=== PATIENT | male | born 1970 | race Caucasian/White ===

== ENCOUNTER 2020-02-08 19:46 | Emergency (ER) | payer MEDICARE, MEDICAID, SELFPAY ==
[2020-02-08 19:47] VITALS: BP 139/91; PULSE 95; RESP 15; TEMP 36.1; O2SAT 98; BMI 34.4
--- NOTE | 2020-02-08 20:36 | ED.VIS.GEN ---
History of Present Illness Chief Complaint: Upper Extremity Injury Narrative: Patient is a 49-year-old male who presents with left middle finger pain. At about 8:00 this morning he went to flick a cigarette to try to send this far as he could. He had immediate pain at his third MCP. He went to urgent care today. Had an x-ray which was reported negative. He still has pain so he presented here for evaluation because he feels like the tendon is moving. Past Medical History - Allergies and Home Meds Allergies/Adverse Reactions: Allergies risperidone [From Risperdal] Allergy (Verified 02/08/20 19:52) Hives naproxen Adverse Reaction (Verified 02/08/20 19:52) Nausea Past Medical History: - - Diabetes and schizoaffective disorder Smoking Status: Current every day smoker Review of Systems All systems negative except as indicated General: Denies: Fever Cardiovascular: Denies: Chest pain Respiratory: Denies: Dyspnea Musculoskeletal: Reports: Extremity Pain Skin: Denies: Rash Neurological: Denies: Headache Physical Exam Vital Signs/Narrative: Vital Signs Temp Pulse Resp BP Pulse Ox 02/08/20 19:47 96.9 F L 95 15 139/91 H 98 General: Well nourished Head: Normocephalic Eyes: EOMI Cardiovascular: Regular rate Respiratory: No distress Extremities: - - Patient has tenderness at the third MCP no obvious deformity in the hand or digits he has normal flexion and extension he has brisk capillary refill normal sensation Skin: Normal color Neurological: Alert Diagnostic/Tx/Re-eval - Medical Decision Making Patient's exam is consistent with a finger sprain. He already had x-rays today. I do not believe repeat imaging is indicated. He was given ibuprofen and a finger splint advised on supportive care. He was discharged home. ED Disposition - Plan for ED Patient: Disposition: Home or Assisted Living Diagnosis: Finger sprain Instructions: ED Sprain Finger Prescriptions: Ibuprofen [Motrin] 600 mg PO Q6H PRN PRN #15 tab PRN Reason: Pain/Inflammation Prescription Printed Referrals: Leroy Hendricks MD [STAFF PHYSICIAN] -
[2020-02-08] MEDS: Ibuprofen 600 MG Tablet PO (21:03)
[2020-02-08 21:04] VITALS: PULSE 86; RESP 16; O2SAT 98
== END 2020-02-08 21:07 | disposition home or self-care (01) ==
LOC: ED 21:06
PROVIDERS: Emergency Provider Emergency Medicine
DX: S63.613A Unspecified sprain of left middle finger, initial encounter (principal); F17.210 Nicotine dependence, cigarettes, uncomplicated; E11.9 Type 2 diabetes mellitus without complications; F25.9 Schizoaffective disorder, unspecified; X58.XXXA Exposure to other specified factors, initial encounter; Z79.4 Long term (current) use of insulin
CPT/HCPCS: 99283

== ENCOUNTER 2020-03-07 06:10 | Emergency (ER) | payer MEDICARE, MEDICAID, SELFPAY ==
[2020-03-07 06:11] VITALS: BP 136/80; PULSE 103; RESP 18; TEMP 36.7; O2SAT 99; BMI 36.4
--- NOTE | 2020-03-07 06:13 | RAD_ITS ---
STUDY: X-RAY CHEST REASON FOR EXAM: Male, 49 years old. PALPITATIONS AFTER USING CRACK -- REFUSED TO REMOVE NIPPLE RINGS TECHNIQUE: Single AP portable view of the chest. COMPARISON: None. FINDINGS: The lungs are clear and expanded. There is no demonstrated pleural abnormality. Normal size heart. Normal mediastinum and eliezer. Normal visualized pulmonary arteries. Normal visualized aortic arch and descending thoracic aorta. Normal visualized thoracic spine. Normal visualized ribs, clavicles, and shoulders. There is no demonstrated abnormality of the visualized soft tissue structures of the upper abdomen. RAD/Chest 1 View (Portable) IMPRESSION: Normal x-ray examination of the chest. Electronically Signed: Perico Cintron MD at 6:42 EST Tel , Service support ,
--- NOTE | 2020-03-07 06:13 | EKG12_ITS ---
Test Reason : PALPATATIONS Blood Pressure : / mmHG Vent. Rate : 102 BPM Atrial Rate : 102 BPM P-R Int : 144 ms QRS Dur : 074 ms QT Int : 366 ms P-R-T Axes : 060 044 064 degrees QTc Int : 477 ms Sinus tachycardia with Premature atrial complexes Otherwise normal ECG Confirmed by ANTONI STOCK, YANIRA ([id number]), editor map NIGEL BELCHER ([id number]) on 03/09/2020 12:52:45 PM Referred By: TOMAS Confirmed By:YANIRA CORRALES MD
--- NOTE | 2020-03-07 06:14 | ED.DCSUM_ITS ---
History of Present Illness Chief Complaint: Palpitations Informant: Patient Narrative: 49-year-old male states that last evening and into the night he smoked about $400 worth of crack cocaine. He then went home and drank a 12 pack of regular Coke. He states he was having some chest pain but now it feels like his heart is skipping beats. He feels anxious. He states that he had been sober for 2 years. Past Medical History - Allergies and Home Meds Allergies/Adverse Reactions: Allergies risperidone [From Risperdal] Allergy (Verified 03/07/20 06:13) Hives naproxen Adverse Reaction (Verified 03/07/20 06:13) Nausea Primary Care Physician: NOT,DEFINED [NON-STAFF] - Past Medical History: - - Asthma polysubstance drug abuse Surgical History: noncontributory Smoking Status: Current every day smoker Drugs: Cocaine Review of Systems General: Denies: Chills, Fever, Sweats Eyes: Denies: Visual changes - bilaterally, Diplopia ENT: Denies: Rhinorrhea, Sore throat Cardiovascular: Reports: Chest pain, Palpitations, Heart racing Respiratory: Denies: Dyspnea, Cough, Dyspnea on exertion Gastrointestinal: Denies: Abdominal pain, Nausea, Vomiting, Diarrhea, Melena, Hematochezia Genitourinary: Denies: Dysuria, Hematuria, Frequency Musculoskeletal: Denies: Back pain, Extremity Pain Skin: Denies: Rash, Wounds Neurological: Denies: Headache, Weakness, Numbness Psych: Reports: Anxiety. Denies: Suicidal thoughts, Suicidal ideations Physical Exam Vital Signs/Narrative: Vital Signs Temp Pulse Resp BP Pulse Ox 03/07/20 06:11 98.0 F 103 H 18 136/80 H 99 Inital Vital Signs reviewed: Yes General: Well nourished, Well developed, No Acute Distress Head: Normocephalic, Atraumatic Eyes: Perrl, EOMI ENT: Moist mucous membranes, No rhinorrhea Neck: Supple, Nontender Cardiovascular: Regular rate, No murmurs, Tachycardia Respiratory: No distress, CTA bilaterally, Chest nontender Abdomen: Soft, Nontender, Nondistended, Normal bowel sounds Back: Nontender, Normal Inspection Extremities: Nontender, No edema Skin: Normal color, No rash Neurological: Alert, Oriented x3, Cranial nerves II-XII grossly intact, Normal Strength, Normal Sensation Psychological: Normal affect, Normal Mood Diagnostic/Tx/Re-eval Clinical Impression(s) from Imaging Studies Chest X-Ray 03/07/20 06:13 IMPRESSION: Normal x-ray examination of the chest. Electronically Signed: Perico Cintron MD at 6:42 EST Tel , Service support , Laboratory Last Values WBC 14.1 K/mm3 (4.4-11.0) H 03/07/20 06:20 RBC 4.94 M/mm3 (4.6-6.2) 03/07/20 06:20 Hgb 15.1 g/dL (13.0-16.5) 03/07/20 06:20 Hct 45.3 % (40-54) 03/07/20 06:20 MCV 91.7 fL (80-94) 03/07/20 06:20 MCH 30.6 pg (27.0-32.0) 03/07/20 06:20 MCHC 33.3 g/dL (32-36) 03/07/20 06:20 RDW Std Deviation 41.3 fl (35.1-43.9) 03/07/20 06:20 RDW Coeff of Thais 12.2 % (11.6-14.6) 03/07/20 06:20 Plt Count 378 K/mm3 (150-450) 03/07/20 06:20 MPV 8.5 fl (6.2-12.0) 03/07/20 06:20 Immature Gran % (Auto) 0.700 % (0.0-0.9) 03/07/20 06:20 Neut % (Auto) 61.7 % (47-70) 03/07/20 06:20 Lymph % (Auto) 26.4 % (19-41) 03/07/20 06:20 [place] % (Auto) 8.2 % (0-10) 03/07/20 06:20 Eos % (Auto) 2.4 % (0-5) 03/07/20 06:20 Baso % (Auto) 0.6 % (0-1) 03/07/20 06:20 Absolute Neuts (auto) 8.7 X10^3/uL (2.0-7.7) H 03/07/20 06:20 Absolute Lymphs (auto) 3.72 X10^3/uL (0.83-4.51) 03/07/20 06:20 Nucleated RBC % 0 % (0-5) 03/07/20 06:20 Sodium 132 mmol/L (136-145) L 03/07/20 06:20 Potassium 3.5 mmol/L (3.5-5.1) 03/07/20 06:20 Chloride 96 mmol/L (98-107) L 03/07/20 06:20 Carbon Dioxide 29.0 mmol/L (21.0-32.0) 03/07/20 06:20 Anion Gap 7 (5-15) 03/07/20 06:20 BUN 2 mg/dL (7-18) L 03/07/20 06:20 Creatinine 0.94 mg/dL (0.70-1.30) 03/07/20 06:20 Estim Creat Clear Calc 90.83 ml/min 03/07/20 06:20 Est GFR (MDRD) Af Amer 110 mL/min (>60) 03/07/20 06:20 Est GFR (MDRD) Non-Af 91 mL/min (>60) 03/07/20 06:20 BUN/Creatinine Ratio 2.1 RATIO (10-20) L 03/07/20 06:20 Glucose 120 mg/dL (74-106) H 03/07/20 06:20 Calcium 8.4 mg/dL (8.5-10.1) L 03/07/20 06:20 Magnesium 1.7 mg/dL (1.6-2.6) 03/07/20 06:20 Troponin I < 0.015 ng/mL (<0.045) 03/07/20 06:20 - EKG Initial EKG Interpretation: Sinus Tachycardia - EKG demonstrates a sinus tachycardia at a rate of 102 with PACs noted. No concerning features of ACS - Medical Decision Making Patient was placed on the monitor. He received a milligram of Ativan. His heart rate is down to 100. Basic labs including troponin negative. Read the chest x-ray showed a normal mediastinal silhouette. This was also read as negative by radiology. There is no evidence of ACS at this time. He is requesting discharge. I think that this is very reasonable. ED Disposition - Plan for ED Patient: Disposition: Home or Assisted Living Diagnosis: Cocaine abuse, Chest pain, Palpitations Instructions: ED Abuse Cocaine and Crack Referrals: Wendy Jules MD [STAFF PHYSICIAN] - As Needed (for primary care)
[2020-03-07 06:31] LABS: Absolute Lymphocyte Count 3.72 X10^3/uL (0.83-4.51); Absolute Neutrophil Count 8.7 X10^3/uL (2.0-7.7); Basophil# 0.09 X10^3/uL; Basophil% 0.6 % (0-1); Eosinophil# 0.34 X10^3/uL; Eosinophils% 2.4 % (0-5); Hematocrit 45.3 % (40-54); Hemoglobin 15.1 g/dL (13.0-16.5); Lymphocyte # 3.72 X10^3/ul (4.0); Lymphocyte % 26.4 % (19-41); Mean Corp Hgb Conc 33.3 g/dL (32-36); Mean Corpuscular Hgb 30.6 pg (27.0-32.0); Mean Corpuscular Volume 91.7 fL (80-94); Mean Platelet Vol. 8.5 fl (6.2-12.0); Monocyte# 1.15 X10^3/uL; Monocyte% 8.2 % (0-10); NRBC Flagged by Analyzer 0 % (0-5); Neutrophil # 8.69 X10^3/uL (2.7-7.7); Neutrophil % 61.7 % (47-70); Platelet Count 378 K/mm3 (150-450); RBC Distribution Width CV 12.2 % (11.6-14.6); RBC Distribution Width SD 41.3 fl (35.1-43.9); Red Blood Count 4.94 M/mm3 (4.6-6.2); White Blood Count 14.1 K/mm3 (4.4-11.0)
[2020-03-07] MEDS: 0.9% Normal Saline 1,000 ML 1000 ML IV (06:32)
[2020-03-07] MEDS: LORazepam 2 MG/ML Syringe 1 MG IV (06:33)
[2020-03-07 06:57] LABS: Anion Gap 7 (5-15); BUN 2 mg/dL (7-18); BUN/Creat Ratio 2.1 RATIO (10-20); Calcium,Total 8.4 mg/dL (8.5-10.1); Chloride 96 mmol/L (98-107); Creatinine, Serum 0.94 mg/dL (0.70-1.30); EST Glomerular Filtration Rate 91 mL/min (>60); Est Glom Filt Rate - Afr Amer 110 mL/min (>60); Estimated Creatinine Clearance 90.83 ml/min; Glucose 120 mg/dL (74-106); Magnesium 1.7 mg/dL (1.6-2.6); Potassium 3.5 mmol/L (3.5-5.1); Sodium Level 132 mmol/L (136-145)
[2020-03-07 07:16] VITALS: BP 162/96; PULSE 98; RESP 21; O2SAT 96
--- NOTE | 2020-03-07 07:20 | ED.RN ---
IV DC'ED, CATHETER INTACT, SMALL GAUZE DRESSING PLACED. DISCHARGE INSTRUCTIONS GIVEN TO AND REVIEWED WITH PATIENT, PATIENT DENIES QUESTIONS OR CONCERNS AND VOICES UNDERSTANDING OF DISCHARGE INSTRUCTIONS. PT AMBULATES OUT OF ROOM WITHOUT DIFFICULTY.
== END 2020-03-07 08:31 | disposition home or self-care (01) ==
PROVIDERS: Emergency Provider Emergency Medicine
DX: F14.10 Cocaine abuse, uncomplicated (principal); R07.9 Chest pain, unspecified; R00.2 Palpitations; F17.200 Nicotine dependence, unspecified, uncomplicated; J45.909 Unspecified asthma, uncomplicated
CPT/HCPCS: 71045; 80048; 83735; 84484; 85025; 93005; 96361; 96374; 99283; J7030; A4216

== ENCOUNTER 2020-03-11 22:11 | Emergency (ER) | payer MEDICARE, MEDICAID, SELFPAY ==
[2020-03-11 22:12] VITALS: BP 173/93; PULSE 100; RESP 24; TEMP 36.9; O2SAT 97; BMI 33.4
[2020-03-11 22:16] VITALS: BP 156/89
[2020-03-11 22:17] VITALS: O2SAT 98
--- NOTE | 2020-03-11 22:26 | ED.DCSUM_ITS ---
History of Present Illness Chief Complaint: Shortness of Breath Detail of Chief Complaint: Nonproductive cough, dyspnea, loss of taste and smell Onset: Yesterday Context: Sudden Onset Timing: Continuous Quality: Dyspnea, nonproductive cough, rhinorrhea Location: Upper respiratory Current Severity: Mild Maximum Severity: Moderate Worsened by: Dyspnea with exertion Relieved by: Nothing Associated Symptoms: Subjective fever Narrative: Patient is a 49-year-old male who admitted to doing cocaine/crack the other day. He reports shortness of breath, dyspnea on exertion, nonproductive cough, rhinorrhea, ear pain, headache and loss of taste and smell. Onset of symptoms approximate 24 hours ago. He denies history of VTE. He denies leg pain, swelling discoloration. He has not noted a rash. He denies photophobia, neck pain or neck stiffness. He denies nausea, vomiting or diarrhea. He states I do not feel well . He has been out without the use of a mask. Prior similar symptoms: No Recent Illness/Hospitalization: No - Past Medical History (1) Illicit drug use Status: Acute (2) Tobacco use Status: Acute Past Medical History - Allergies and Home Meds Allergies/Adverse Reactions: Allergies risperidone [From Risperdal] Allergy (Verified 03/11/20 22:15) Hives naproxen Adverse Reaction (Verified 03/11/20 22:15) Nausea Primary Care Physician: BEATRIZ SNYDER [Other] Prior records reviewed: No Past Medical History: None Surgical History: noncontributory Lives: Spouse/ Significant Other Smoking Status: Current every day smoker Alcohol: None Drugs: - - Crack cocaine Review of Systems General: Reports: Malaise. Denies: Chills, Fever, Subjective, Sweats Eyes: Denies: Visual changes - bilaterally, Blurred Vision - bilaterally ENT: Reports: Bilateral ear pain, Rhinorrhea, Sore throat Cardiovascular: Reports: Palpitations. Denies: Chest pain Respiratory: Reports: Dyspnea, Cough, Dyspnea on exertion. Denies: Sputum, Orthopnea, Paroxysmal nocturnal dyspnea Gastrointestinal: Denies: Abdominal pain, Nausea, Vomiting, Diarrhea, Melena, Hematochezia Genitourinary: Denies: Dysuria, Hematuria, Frequency Musculoskeletal: Denies: Myalgias, Arthralgias, Neck pain, Back pain, Swelling, Extremity Pain Skin: Denies: Rash, Wounds Neurological: Reports: Weakness. Denies: Headache, Parasthesia Endocrine: Denies: Polyuria, Polydipsia Hematologic: Denies: Easy bruising, Easy bleeding Physical Exam Vital Signs/Narrative: Vital Signs Temp Pulse Resp BP Pulse Ox 03/11/20 22:16 156/89 H 03/11/20 22:12 98.5 F 100 24 H 173/93 H 97 Inital Vital Signs reviewed: Yes General: Well nourished, Well developed, Obese, - - Appears ill. Head: Normocephalic, Atraumatic Eyes: Perrl, EOMI. Negative for: Pale conjunctiva, Scleral icterus ENT: Moist mucous membranes, TM's clear. Negative for: No rhinorrhea Neck: Supple, Nontender, No lymphadenopathy, No JVD Cardiovascular: Regular rate, Regular rhythm, No murmurs, Normal S1 Respiratory: No distress, CTA bilaterally, Chest nontender Abdomen: Soft, Nontender, Nondistended, Normal bowel sounds Rectal: Deferred Back: Nontender, Normal Inspection Extremities: Nontender, No edema, - - There is no asymmetry, swelling, discoloration, leg vein distention, palpable cords or tenderness along the distribution of the deep venous system. Skin: Normal color, No rash Neurological: Alert, Oriented x3, Cranial nerves II-XII grossly intact, Normal Strength, Normal Sensation Psychological: Normal affect Diagnostic/Tx/Re-eval Chest X-Ray - ED: 1 View, Read by ED Physician, Normal, Heart, Mediastinum, Bony Structures, No Acute Disease, Chronic Changes Impressions Chest X-Ray 03/11/20 22:50 IMPRESSION: Normal x-ray examination of the chest. Electronically Signed: Inderjit Grayson MD at 23:09 EST , Service support , 03/11/20 22:50 Chest 1 View (Portable) [RAD] Stat Laboratory Results 03/11/20 03/11/20 03/11/20 22:30 22:30 22:30 WBC 14.4 H RBC 4.85 Hgb 15.0 Hct 44.0 MCV 90.7 MCH 30.9 MCHC 34.1 RDW Std Deviation 40.2 RDW Coeff of Thais 12.1 Plt Count 370 MPV 8.6 Immature Gran % (Auto) 0.600 Neut % (Auto) 61.8 Lymph % (Auto) 23.2 [place] % (Auto) 7.9 Eos % (Auto) 5.7 H Baso % (Auto) 0.8 Absolute Neuts (auto) 8.9 H Absolute Lymphs (auto) 3.33 Nucleated RBC % 0 Sodium 128 L Potassium 3.1 L Chloride 94 L Carbon Dioxide 29.0 Anion Gap 5 BUN 3 L Creatinine 0.86 Estim Creat Clear Calc 109.64 Est GFR (MDRD) Af Amer 121 Est GFR (MDRD) Non-Af 100 BUN/Creatinine Ratio 3.5 L Glucose 112 H Lactic Acid 1.9 Calcium 8.1 L Total Bilirubin 0.30 AST 7 L ALT 28 Alkaline Phosphatase 124 H Total Protein 7.1 Albumin 3.7 Globulin 3.4 Albumin/Globulin Ratio 1.1 Patient has elevated white count. Patient was seen on the and had elevated white count of 14.1 thousand. He was hyponatremic on that visit as well. Lactate is normal at 1.9. Chest x-ray unremarkable. Patient has symptoms consistent with Covid. He was discharged with appropriate home-going i nstructions for Covid. - Medical Decision Making She presents with upper respiratory-like symptoms. With loss of taste and smell suspect patient has Covid. Appropriate tests were ordered which included CBC, basic metabolic panel and chest x-ray. Since patient is not hemodynamically stable nor is he hypoxic outpatient Covid test was ordered. ED Disposition - Plan for ED Patient: Disposition: Home or Assisted Living Diagnosis: COVID-19 virus infection, Hyponatremia, Hypokalemia Referrals: BEATRIZ SNYDER [Other] - 10-14 Days if not better Additional Instructions: 1. You need to self quarantine for the next 10 to 14 days. 2. It is in your best interest to quit smoking tonight. 3. All of your symptoms are caused from viral infection and your symptoms are consistent with COVID-19 infection.
--- NOTE | 2020-03-11 22:50 | RAD_ITS ---
STUDY: X-RAY CHEST REASON FOR EXAM: Male, 49 years old. COMPLAINS OF DYSPNEA WITH EXERTION SINCE YESTERDAY. HX OF ASTHMA TECHNIQUE: Single AP portable view of the chest. COMPARISON: 03/07/2020. FINDINGS: The lungs are clear and expanded. There is no demonstrated pleural abnormality. Normal size heart. Normal mediastinum and eliezer. Normal visualized pulmonary arteries. Normal visualized aortic arch and descending thoracic aorta. Normal visualized thoracic spine. Normal visualized ribs, clavicles, and shoulders. There is no demonstrated abnormality of the visualized soft tissue structures of the upper abdomen. RAD/Chest 1 View (Portable) IMPRESSION: Normal x-ray examination of the chest. Electronically Signed: Inderjit Grayson MD at 23:09 EST , Service support ,
[2020-03-11 22:52] LABS: Absolute Lymphocyte Count 3.33 X10^3/uL (0.83-4.51); Absolute Neutrophil Count 8.9 X10^3/uL (2.0-7.7); Basophil# 0.11 X10^3/uL; Basophil% 0.8 % (0-1); Eosinophil# 0.82 X10^3/uL; Eosinophils% 5.7 % (0-5); Lymphocyte # 3.33 X10^3/ul (4.0); Lymphocyte % 23.2 % (19-41); Mean Corp Hgb Conc 34.1 g/dL (32-36); Mean Corpuscular Hgb 30.9 pg (27.0-32.0); Mean Corpuscular Volume 90.7 fL (80-94); Mean Platelet Vol. 8.6 fl (6.2-12.0); Monocyte# 1.13 X10^3/uL; Monocyte% 7.9 % (0-10); NRBC Flagged by Analyzer 0 % (0-5); Neutrophil # 8.88 X10^3/uL (2.7-7.7); Neutrophil % 61.8 % (47-70); Platelet Count 370 K/mm3 (150-450); RBC Distribution Width CV 12.1 % (11.6-14.6); RBC Distribution Width SD 40.2 fl (35.1-43.9); Red Blood Count 4.85 M/mm3 (4.6-6.2); White Blood Count 14.4 K/mm3 (4.4-11.0)
[2020-03-11 23:12] LABS: ALB/GLOB Ratio 1.1 RATIO (0.9-2.4); AST(SGOT) 7 U/L (15-37); Alanine Aminotransfer ALT/SGPT 28 U/L (16-61); Albumin, Serum 3.7 g/dL (3.2-5.0); Alkaline Phosphatase 124 U/L (45-117); Anion Gap 5 (5-15); BUN 3 mg/dL (7-18); BUN/Creat Ratio 3.5 RATIO (10-20); Calcium,Total 8.1 mg/dL (8.5-10.1); Chloride 94 mmol/L (98-107); Creatinine, Serum 0.86 mg/dL (0.70-1.30); EST Glomerular Filtration Rate 100 mL/min (>60); Est Glom Filt Rate - Afr Amer 121 mL/min (>60); Estimated Creatinine Clearance 109.64 ml/min; Globulin 3.4 g/dL (2.2-4.2); Glucose 112 mg/dL (74-106); Potassium 3.1 mmol/L (3.5-5.1); Protein, Total 7.1 g/dL (6.4-8.2); Sodium Level 128 mmol/L (136-145)
[2020-03-11 23:15] LABS: Lactic Acid 1.9 mmol/L (0.4-1.9)
[2020-03-11 23:47] VITALS: O2SAT 96
== END 2020-03-11 23:47 | disposition home or self-care (01) ==
PROVIDERS: Emergency Provider Emergency Medicine
DX: U07.1 COVID-19 (principal); E87.1 Hypo-osmolality and hyponatremia; E87.6 Hypokalemia; F17.200 Nicotine dependence, unspecified, uncomplicated; E66.9 Obesity, unspecified
CPT/HCPCS: 71045; 80053; 83605; 85025; 87635; 99285; A4216; U0003

== ENCOUNTER 2020-03-24 05:06 | Emergency (ER) | payer MEDICARE, MEDICAID, SELFPAY ==
[2020-03-24 05:06] VITALS: BP 157/88; PULSE 105; RESP 23; TEMP 37.1; O2SAT 97; BMI 34.1
--- NOTE | 2020-03-24 05:10 | EKG12_ITS ---
Test Reason : CP Blood Pressure : / mmHG Vent. Rate : 102 BPM Atrial Rate : 102 BPM P-R Int : 136 ms QRS Dur : 070 ms QT Int : 360 ms P-R-T Axes : 056 051 065 degrees QTc Int : 469 ms Sinus tachycardia Otherwise normal ECG Confirmed by CHAITANYA STOCK, JACQUELINE ([id number]), offline editor NIGEL BELCHER ([id number]) on 03/24/2020 1:40:50 PM Referred By: ANNIA Confirmed By:ROULA TAVARES MD
--- NOTE | 2020-03-24 05:10 | RAD_ITS ---
HISTORY: Tquot;i smoked 400$ worth of crack and now my chest feels funny.Tquot; was seen on 03/07/20 for samerefuses to remove nipple piercings EXAM: XR Chest 1 View: COMPARISON: March 11, 2020 FINDINGS: # of images incl. 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 The disease within this location is more accentuated than on the previous study. Additional comparison is made to March 07, 2020. Findings: Today are more similar to that study. Heart is not enlarged. No acute osseous pathology perceived. Pulmonary vascularity is distinct. No effusions. RAD/Chest 1 View (Portable) IMPRESSION: Irregular contour to the left lateral inferior left chest wall due to rib fractures likely is pleural thickening. No significant change accounting for differences in patient position.. at 0557 Reported and signed by: Melquiades Gaming MD Electronically Signed: Melquiades Gaming MD at 5:56 EST Tel , Service support ,
--- NOTE | 2020-03-24 05:20 | ED.DCSUM_ITS ---
History of Present Illness Chief Complaint: Chest Pain Informant: Patient Narrative: Patient is a 49-year-old male who presents to the emergency department for an episode of chest discomfort. This lasted for 30 minutes. Is currently asymptomatic. He states he has had this before whenever he smokes crack. He did smoke yesterday. He does feel short of breath at baseline but this is no worse than normal. He has a chronic cough no worse than normal. Patient does have a history of diabetes, cholesterol, hypertension. He denies any personal history of CAD. He does smoke cigarettes. He is interested in going through rehab. He states he is used crack twice since being sober for the past 7 years and each time he is come to the hospital. He has had suicidal thoughts in the past but is currently denying this now. He does have a history of schizoaffective disorder. He denies any leg swelling or calf pain. No history of DVT/PE. Past Medical History - Allergies and Home Meds Allergies/Adverse Reactions: Allergies risperidone [From Risperdal] Allergy (Verified 03/24/20 05:19) Hives naproxen Adverse Reaction (Verified 03/24/20 05:19) Nausea Primary Care Physician: Shasta Warren MD [[facility]] - 2 Days [facility] Doctor,Out of [NON-STAFF] - Prior records reviewed: Yes Surgical History: noncontributory Smoking Status: Current every day smoker Review of Systems All systems negative except as indicated General: Denies: Chills, Fever, Sweats Eyes: Denies: Visual changes - bilaterally, Diplopia ENT: Denies: Rhinorrhea, Sore throat Cardiovascular: Reports: Chest pain. Denies: Palpitations Respiratory: Reports: Dyspnea, Cough. Denies: Dyspnea on exertion Gastrointestinal: Denies: Abdominal pain, Nausea, Vomiting, Diarrhea Genitourinary: Denies: Dysuria, Hematuria, Frequency Musculoskeletal: Denies: Back pain, Extremity Pain Skin: Denies: Rash, Wounds Neurological: Denies: Headache, Weakness, Numbness Psych: Reports: Suicidal thoughts Physical Exam Vital Signs/Narrative: Vital Signs Temp Pulse Resp BP Pulse Ox 03/24/20 05:06 98.8 F 105 H 23 H 157/88 H 97 General: Well nourished, Well developed, No Acute Distress Head: Normocephalic, Atraumatic Eyes: Perrl, EOMI ENT: Moist mucous membranes, No rhinorrhea Neck: Supple, Nontender Cardiovascular: Regular rhythm, No murmurs, Tachycardia Respiratory: No distress, CTA bilaterally, Chest nontender Abdomen: Soft, Nontender, Nondistended, Normal bowel sounds Back: Nontender, Normal Inspection Extremities: Nontender, No edema. Negative for: Calf Tenderness Skin: Normal color, No rash Neurological: Alert, Oriented x3, Cranial nerves II-XII grossly intact, Normal Strength, Normal Sensation Psychological: Normal affect, Normal Mood Diagnostic/Tx/Re-eval Chest X-Ray - ED: 1 View - Single view x-ray interpreted by myself. No evidence of consolidation in the lung barclay bilaterally. Normal cardiac silhouette. No acute cardiopulmonary abnormality. There are previous rib fractures noted. Ag ree with radiologist. - EKG Initial EKG Interpretation: - - Rate of 102 bpm in sinus tachycardia. Normal intervals. Normal axis. No ST elevations or depressions appreciated. No T wave abnormalities. - Medical Decision Making Patient presents to the emergency department for chest pain after smoking crack. His symptoms have alleviated at this time. He does have significant risk factors given his comorbidities for CAD although I believe his symptoms are related to his crack cocaine use. His EKG upon arrival did not show any signs of ischemia or arrhythmia. Will check basic lab work and chest x-ray. Patient's initial lab work-up did not reveal a significant acute abnormality. Initial troponin is negative. Chest x-ray not show any acute cardiopulmonary abnormalities. He has been asymptomatic throughout ED stay. I did recommend he stay for a repeat troponin given the fact his crack cocaine use. Patient adamant on leaving states he has things to do. I did discuss risks associate with being discharged without getting the repeat troponin. Patient still adamant on leaving. He understands risks and accepts these. I did provide outpatient resources for rehab which she was requesting. I did make a PCP referral as well. Warning signs and symptoms which to return to the ED including any developing chest pain again are reviewed. He understands and is agreeable this plan. All questions answered. ED Disposition - Plan for ED Patient: Disposition: Home or Assisted Living Diagnosis: Chest pain, Illicit drug use Instructions: Treating Drug Abuse and Addiction, ED Chest Pain, Uncertain Cause Referrals: [facility] Doctor,Out of [NON-STAFF] - Shasta Warren MD [[facility]] - 2 Days
[2020-03-24 05:22] LABS: Absolute Lymphocyte Count 3.56 X10^3/uL (0.83-4.51); Basophil# 0.08 X10^3/uL; Basophil% 0.6 % (0-1); Eosinophil# 0.33 X10^3/uL; Eosinophils% 2.5 % (0-5); Hemoglobin 14.9 g/dL (13.0-16.5); Lymphocyte # 3.56 X10^3/ul (4.0); Lymphocyte % 26.7 % (19-41); Mean Corp Hgb Conc 34.7 g/dL (32-36); Mean Corpuscular Hgb 31.4 pg (27.0-32.0); Mean Corpuscular Volume 90.7 fL (80-94); Mean Platelet Vol. 8.7 fl (6.2-12.0); Monocyte# 1.32 X10^3/uL; Monocyte% 9.9 % (0-10); NRBC Flagged by Analyzer 0 % (0-5); Neutrophil # 7.99 X10^3/uL (2.7-7.7); Neutrophil % 59.8 % (47-70); Platelet Count 377 K/mm3 (150-450); RBC Distribution Width CV 12.3 % (11.6-14.6); RBC Distribution Width SD 40.8 fl (35.1-43.9); Red Blood Count 4.74 M/mm3 (4.6-6.2); White Blood Count 13.4 K/mm3 (4.4-11.0)
[2020-03-24 05:41] LABS: Anion Gap 5 (5-15); BUN 6 mg/dL (7-18); BUN/Creat Ratio 5.9 RATIO (10-20); Calcium,Total 8.8 mg/dL (8.5-10.1); Chloride 102 mmol/L (98-107); Creatinine, Serum 1.02 mg/dL (0.70-1.30); EST Glomerular Filtration Rate 83 mL/min (>60); Est Glom Filt Rate - Afr Amer 100 mL/min (>60); Estimated Creatinine Clearance 83.71 ml/min; Glucose 126 mg/dL (74-106); Magnesium 1.9 mg/dL (1.6-2.6); Potassium 3.5 mmol/L (3.5-5.1); Sodium Level 136 mmol/L (136-145)
[2020-03-24 06:07] VITALS: BP 155/80; PULSE 102; RESP 18; O2SAT 100
== END 2020-03-24 06:08 | disposition home or self-care (01) ==
PROVIDERS: Emergency Provider Emergency Medicine
DX: R07.9 Chest pain, unspecified (principal); F17.210 Nicotine dependence, cigarettes, uncomplicated; E78.00 Pure hypercholesterolemia, unspecified; I25.10 Atherosclerotic heart disease of native coronary artery without angina pectoris; I10 Essential (primary) hypertension; E11.9 Type 2 diabetes mellitus without complications; F25.9 Schizoaffective disorder, unspecified; Z79.4 Long term (current) use of insulin
CPT/HCPCS: 71045; 80048; 83735; 84484; 85025; 93005; 99284; A4216